=== PATIENT | female | born 1960 | race Caucasian/White ===

== ENCOUNTER 2022-09-21 17:05 | Emergency (ER) | payer MEDICAID ==
[~2022-09-21] VITALS: Ht 170.2 cm; Wt 63.4 kg
[~2022-09-21 17:05] MED LIST: CLON0.5T PO; LISI20TA28 PO; QUET200T30 PO
[2022-09-21 17:57] LABS: Basophils # (auto) 0.2 10 ^3/uL (0-0.2); Basophils % (auto) 2.9 % (0.0-2.0); Eosinophils # (auto) 0 10 ^3/uL (0-0.8); Eosinophils % (auto) 0.4 % (0.0-7.0); Hematocrit 45.3 % (36.0-46.0); Hemoglobin 15.7 g/dL (12.2-16.2); Lymphocytes # (auto) 1.5 10 ^3/uL (0.4-5.4); Lymphocytes % (auto) 19.1 % (10.0-50.0); Mean Corpuscular Hgb Conc. 34.8 g/dL (32.0-36.0); Mean Corpuscular Volume 86.3 fL (80.0-100.0); Monocytes # (auto) 0.4 10 ^3/uL (0-1.3); Monocytes % (auto) 5.1 % (0.0-12.0); Neutrophils # (auto) 5.7 10 ^3/uL (1.6-8.6); Neutrophils % (auto) 72.5 % (37.0-80.0); Nucleated Red Blood Cells % 0.1 %; Red Blood Cells 5.24 10^6/uL (4.0-5.20); Red Cell Distribution Width 13.1 % (11.8-14.3); White Blood Cell 7.9 10^3/uL (4.4-10.8)
[2022-09-21 18:24] LABS: Albumin 4.1 g/dL (3.4-5.0); BUN/Creatinine Ratio 11.1; Bilirubin, Total 0.5 mg/dL (0.2-1.0); Calcium 9.2 mg/dL (8.5-10.1); Potassium 3.7 mmol/L (3.5-5.1); Total Protein 7.5 g/dL (6.4-8.2)
[2022-09-21 20:33] VITALS: BP 161/93
[2022-09-21] MEDS ORDERED: PANT40TA2 PO (20:36)
== END 2022-09-21 20:36 | disposition home or self-care (01) ==
LOC: ER 17:12
DX: K42.9 Umbilical hernia without obstruction or gangrene (principal); D25.9 Leiomyoma of uterus, unspecified; K29.70 Gastritis, unspecified, without bleeding; I10 Essential (primary) hypertension; F17.210 Nicotine dependence, cigarettes, uncomplicated; Z79.899 Other long term (current) drug therapy; Z88.8 Allergy status to other drugs, medicaments and biological substances
CPT/HCPCS: 36415; 71045; 74176; 80053; 84484; 85025; 99285; J7030

== ENCOUNTER 2025-06-24 16:09 | Emergency (ER) | payer OTHER ==
[~2025-06-24] VITALS: Ht 167.6 cm; Wt 60.6 kg
[~2025-06-24 16:09] MED LIST changes: +CLON-1003 PO; -CLON0.5T PO; -LISI20TA28 PO; +LISI20TA56 PO; +PANT40TA2 PO
--- NOTE | 2025-06-24 17:10 | DVH ---
Indication: abdominal pain constipation Technique: CT axial images of the abdomen and pelvis are obtained without contrast. Coronal and sagit pamela reformats were obtained. Radiation Dose Information: CTDI volume is 8.57 mGy. Dose-length product is 448.64 mGy*cm Comparison: CT ABD PELVIS WO CONTRAST on DOS: 09/21/22 FINDINGS: There is limited interpretation of the abdomen and pelvis without administration of intravenous contr ast. Lung bases demonstrate emphysematous changes. No pleural effusion. Small pericardial effusion. Left adrenal nodule with Hounsfield units of 9 measuring 3 cm. There is some calcification within thi s nodule Spleen, pancreas, liver unremarkable in shape no CT evidence for cholelithiasis. There is no hydronephrosis / nephrolithiasis. Stomach partially distended. Small bowel loops are demonstrating fecal like contents. Moderate to lar ge volume stool in the colon. Normal appendix. Abdominal aortic atherosclerotic disease. Bladder is partially distended. Calcified uterine leiomyo mas. No free pelvic fluid. No inguinal lymphadenopathy. [id number] bilateral sacroiliac degenerative joint disease. Gfce-xe-ptjetmhz thoracolumbar dege nerative disc disease. IMPRESSION: Limited evaluation without contrast. Moderate to large volume stool within the colon. Fecal like contents within the small bowel which can be seen with ileus, hypomotility, bowel obstruct ion. Left adrenal nodule with Hounsfield units of 9 measuring 3 cm. Small amount of calcification within this nodule. This most likely represents an adenoma however given the internal calcification recommen d continued follow-up to exclude any type of aggressive process. Overall this appears similar to exam ination from 09/11/2022. Pulmonary emphysematous changes. Atherosclerotic, coronary artery calcification disease. Other findings as described.
[2025-06-24 17:30] LABS: Hematocrit 42.8 % (36.0-46.0); Hemoglobin 14.8 g/dL (12.2-16.2); Mean Corpuscular Hemoglobin 30.0 pg (28.0-32.0); Mean Corpuscular Volume 86.9 fL (80.0-100.0); Nucleated Red Blood Cells % 0.1 %
[2025-06-24 17:44] LABS: Alkaline Phosphatase 58 U/L (46-116); Anion Gap 9 (5-15); BUN/Creatinine Ratio 5.3 (10.0-20.0); Calcium 10.2 mg/dL (8.7-10.4); Carbon Dioxide 28 mmol/L (20-31); Chloride 102 mmol/L (98-107); Potassium 4.2 mmol/L (3.5-5.1); Sodium 139 mmol/L (136-145); Total Protein 7.5 g/dL (5.7-8.2)
[2025-06-24 17:45] LABS: Bilirubin, Total 0.6 mg/dL (0.2-1.0)
[2025-06-24 17:50] LABS: Alanine Aminotransferase 47 U/L (7-40); Albumin 4.9 g/dL (3.2-4.8); Blood Urea Nitrogen 5 mg/dL (9-23); Glucose 128 mg/dL (74-106)
[2025-06-24 18:19] LABS: Urine Protein, UAD Negative (Negative)
[2025-06-24] MEDS ORDERED: MAGNESIUM CITRATE SOLUTION 300 ML BTL PO ONE (19:00)
[2025-06-24] MEDS ORDERED: FLEET ENEMA(ADULT) 135 ML PR ONE (19:00)
[2025-06-24] MEDS ORDERED: DICYCLOMINE HCL (10MG/ML) 2 ML AMPULE IM ONE (19:00)
[2025-06-24] MEDS ORDERED: ONDANSETRON ODT 4 MG TAB PO ONE (19:00)
--- NOTE | 2025-06-24 19:12 | ED.PDOC ---
GI ASSESSMENT HPI Comments 65 y.o female with PMHx of hypertension, DM and HLD, presents to the ED for a chief complaint of abdominal pain associated with nausea and constipation. Patient reports pain has been ongoing for a couple months, usually generalized but today presents with RUQ region. Patient states constipation presented 3 weeks ago, in which that was her last regular BM but states having very small pellet like stool output daily, including today. Patient has been taking liquid medication to regulate her BM's but d/c use 2 weeks ago as it made her bloated and did not relieve constipation. Additionally, patient has been seen multiple times by PCP and had abdominal CT 2 weeks ago. Patient states she was told she was backed up with stool. She was prescribed a medication for pain however researching it, she discovered it causes gas, so did not take it. She denies any vomiting, fever, chills. Chief Complaint: Abdominal Pain Time Seen by MD: 18:50 Reviewed Notes: Nurses Notes, Medications, Allergies Allergies: Coded Allergies: Metformin (Verified Allergy, Mild, RASH, , 12/17/19) Home Meds Active Scripts Ondansetron Odt 4MG Tab (ZOFRAN PO) 4 Mg Tb, 4 MG PO TID PRN, #20 TAB prn nausea ODT TAB-DISSOLVE IN MOUTH, THEN SWALLOW Prov:GRACE BARON MD 06/24/25 Sodium Phosphates (FLEET ENEMA SIX PACK) Enema Cristy, 1 BOTTLE RE DAILY PRN, #1 PACK prn constipation Prov:GRACE BARON MD 06/24/25 Lactulose (Lactulose) 10 Gm/15 Ml Veronica, 10 GM PO DAILY, #450 ML Prov:GRACE BARON MD 06/24/25 Pantoprazole Sodium Sesquihydr (Protonix) 40 Mg Tab, 40 MG PO DAILY PRN for 10 Days, #10 TAB Prov:VICK SHABAZZ MD 09/21/22 Reported Medications Lisinopril (Lisinopril) 20 Mg Tab, 20 MG PO DAILY for 30 Days, MG 12/16/19 Quetiapine Fumerate (Seroquel) 200 Mg Tab, 200 MG PO TID, TAB 09/16/13 Clonazepam (Klonopin) 0.5 Mg Tab, 0.5 MG PO PRN, TAB 09/16/13 Information Source: Patient Mode of Arrival: Ambulatory Timing: Months Duration: Since onset Quality: Sharp Vomitus: None Stool: Empty Severity: Moderate Recent: None Recent Hx of: None Pain Location: RUQ Modifying Factors: Nothing Associated sign and symptoms: Constipation, Abdominal Pain Past Medical History PAST MEDICAL HISTORY: DM, High Lipids, HTN Surgical History: Denies all surgeries Family History Family History: Family hx of HTN Social History Smoker: Cigarettes, Less Than 1 Pack/Day Alcohol: Occasionally Drugs: Denies Drug Use Lives In: Home Constitutional: denies: chills, diaphoresis, fatigue, fever, malaise, sweats, weakness, others EENTM: denies: blurred vision, double vision, ear bleeding, ear discharge, ear drainage, ear pain, ear ringing, eye pain, eye redness, hearing loss, mouth pain, mouth swelling, nasal discharge, nose bleeding, nose congestion, nose pain, photophobia, tearing, throat pain, throat swelling, voice changes, others Respiratory: denies: cough, hemoptysis, orthopnea, SOB at rest, shortness of breath, SOB with excertion, stridor, wheezing, others Cardiovascular: denies: chest pain, dizzy spells, diaphoresis, Dyspnea on exertion, edema, irregular heart beat, left arm pain, lightheadedness, palpitations, PND, syncope, others Gastrointestinal: reports: abdominal pain, constipated; denies: abdomen distended, blood streaked bowels, diarrhea, dysphagia, difficulty swallowing, hematemesis, melena, nausea, poor appetite, poor fluid intake, rectal bleeding, rectal pain, vomiting, others Genitourinary: denies: abnormal vagina bleeding, burning, dyspareunia, dysuria, flank pain, frequency, hematuria, incontinence, pain, , vagina discharge, urgency, others Neurological: denies: dizziness, fainting, headache, left sided numbness, left sided weakness, numbness, paresthesia, pre-existing deficit, right sided numbness, right sided weakness, seizure, speech problems, tingling, tremors, weakness, others Musculoskeletal: denies: back pain, gout, joint pain, joint swelling, muscle pain, muscle stiffness, neck pain, others Integumetry: denies: bruises, change in color, change in hair/nails, dryness, laceration, lesions, lumps, rash, wounds, others Allergic/Immunocompromised: denies: Difficulty Healing, Frequent Infections, Hives, Itching, others Endocrine: denies: excessive hunger, excessive sweating, excessive thirst, excessive urination, flushing, intolerance to cold, intolerance to heat, unexplained weight gain, unexplained weight loss, others Psychiatric: denies: anxiety, bipolar disorder, depression, hopeless, panic disorder, schizophrenia, sleepless, suicidal, others All Other Systems: Reviewed and Negative Physical Exam General Appearance: Mild Distress HEENT: Other (Pupils and face symmetric. Moist mucous membranes.) Neck: Full Range of Motion, Normal Inspection Respiratory: Lungs Clear, No Accessory Muscle Use, No Respiratory Distress, Normal Breath Sounds Cardiovascular: No Edema, No JVD, Regular Rate/Rhythm Breast Exam: Deferred Gastrointestinal: Diffuse, Distended, Tenderness Genitalia: Deferred Pelvic: Deferred Rectal: Deferred Extremities: Normal inspection, Normal range of motion, Non-tender, No pedal edema Neurologic: Alert (Oriented x4), Normal Affect, Normal Mood, Other (Ambulatory) Cerebellar Function: NOT DONE Reflexes: NOT DONE Skin: Dry, Normal Color, Warm Lymphatic: NOT DONE Was a procedure done? Was a procedure done?: No GI differential Dx Differential Diagnosis: Bowel Obstruction, Constipation, Gastroenteritis, Inflammatory BD, Ischemic Bowel, UTI, Dehydration, Electrolyte Imbalance, Bacterial, Viral, Impaction, Renal Failure, Other (Ileus) X-Ray, Labs, Meds, VS Vital Signs Date Time Temp Pulse Resp B/P (MAP) Pulse Ox O2 Delivery O2 Flow Rate FiO2 06/24/25 23:11 97.8 67 18 119/118 (118) 97 97.8 06/24/25 23:11 67 18 97 Room Air 06/24/25 23:03 191/118 06/24/25 16:25 72 06/24/25 16:11 97.6 83 18 190/115 97 97.6 Lab Test 06/24/25 17:01 06/24/25 16:57 Range/Units Urine Color Colorless Yellow Urine Clarity Clear Clear Urine pH 7.0 5.0-9.0 Urine Specific Dora 1.005 1.001-1.035 Urine Protein Negative Negative Urine Ketones Negative Negative Urine Blood Negative Negative /uL Urine Nitrite Negative Negative Urine Bilirubin Negative Negative Urine Urobilinogen Normal Negative mg/dL Urine Leukocyte Esterase Trace Negative /uL Urine RBC <1 0 - 4 /hpf Urine Microscopic WBC 3 0-5 /HPF Urine Squamous Epithelial Cells Few <5 /hpf Urine Bacteria Few H None Seen /hpf Urine Glucose Normal Normal mg/dL White Blood Count 7.0 4.4-10.8 10^3/uL Red Blood Count 4.93 4.0-5.20 10^6/uL Hemoglobin 14.8 12.2-16.2 g/dL Hematocrit 42.8 36.0-46.0 % Mean Corpuscular Volume 86.9 80.0-100.0 fL Mean Corpuscular Hemoglobin 30.0 28.0-32.0 pg Mean Corpuscular Hemoglobin Concent 34.6 32.0-36.0 g/dL Red Cell Distribution Width 13.4 11.8-14.3 % Platelet Count 215 140-450 10^3/uL Mean Platelet Volume 8.3 6.9-10.8 fL Neutrophils (%) (Auto) 65.9 37.0-80.0 % Lymphocytes (%) (Auto) 25.4 10.0-50.0 % Monocytes (%) (Auto) 7.1 0.0-12.0 % Eosinophils (%) (Auto) 1.1 0.0-7.0 % Basophils (%) (Auto) 0.5 0.0-2.0 % Neutrophils # (Auto) 4.6 1.6-8.6 10 ^3/uL Lymphocytes # (Auto) 1.8 0.4-5.4 10 ^3/uL Monocytes # (Auto) 0.5 0-1.3 10 ^3/uL Eosinophils # (Auto) 0.1 0-0.8 10 ^3/uL Basophils # (Auto) 0 0-0.2 10 ^3/uL Nucleated Red Blood Cells 0.1 % Sodium Level 139 136-145 mmol/L Potassium Level 4.2 3.5-5.1 mmol/L Chloride Level 102 98-107 mmol/L Carbon Dioxide Level 28 20-31 mmol/L Anion Gap 9 5-15 Blood Urea Nitrogen 5 L 9-23 mg/dL Creatinine 0.94 0.550-1.02 mg/dL Glomerular Filtration Rate Calc 67 >90 mL/min BUN/Creatinine Ratio 5.3 L 10.0-20.0 Serum Glucose 128 H 74-106 mg/dL Lactic Acid Level 1.0 0.4-2.0 mmol/L Calcium Level 10.2 8.7-10.4 mg/dL Total Bilirubin 0.6 0.2-1.0 mg/dL Aspartate Amino Transferase (AST) 37 13-40 U/L Alanine Aminotransferase (ALT) 47 H 7-40 U/L Alkaline Phosphatase 58 46-116 U/L Total Protein 7.5 5.7-8.2 g/dL Albumin 4.9 H 3.2-4.8 g/dL Current Medications Medications (Trade) Dose Ordered Sig/Mariajose Route Start Time Stop Time Status Last Admin Hydralazine HCl (Apresoline Injection) 10 mg ONCE ONCE IV 06/24/25 21:30 06/24/25 21:32 DC 06/24/25 23:03 Ketorolac Tromethamine (Toradol Injection) 15 mg ONCE ONCE IV 06/24/25 23:15 06/24/25 23:16 DC 06/24/25 23:31 PROCEDURE(s): ABPL - CT AB PEL WO CON-NO ORAL OR IV REASON: abdominal pain constipation ORDER NUMBER(s): [id number], ACCESSION NUMBER(s): [id number] Indication: abdominal pain constipation Technique: CT axial images of the abdomen and pelvis are obtained without con trast. Coronal and sagittal reformats were obtained. Radiation Dose Information: CTDI volume is 8.57 mGy. Dose-length product is 448.64 mGy*cm Comparison: CT ABD PELVIS WO CONTRAST on DOS: 09/21/22 FINDINGS: There is limited interpretation of the abdomen and pelvis without administration of intravenous contrast. Lung bases demonstrate emphysematous changes. No pleural effusion. Small pericardial effusion. Left adrenal nodule with Hounsfield units of 9 measuring 3 cm. There is some calcification within this nodule Spleen, pancreas, liver unremarkable in shape no CT evidence for cholelithiasis. There is no hydronephrosis / nephrolithiasis. Stomach partially distended. Small bowel loops are demonstrating fecal like contents. Moderate to large volume stool in the colon. Normal appendix. Abdominal aortic atherosclerotic disease. Bladder is partially distended. Calcified uterine leiomyomas. No free pelvic fluid. No inguinal lymphadenopathy. Osiz-oe-daeeztuo bilateral sacroiliac degenerative joint disease. Ouqh-bw-mplipjyg thoracolumbar degenerative disc disease. IMPRESSION: Limited evaluation without contrast. Moderate to large volume stool within the colon. Fecal like contents within the small bowel which can be seen with ileus, hypomotility, bowel obstruction. Left adrenal nodule with Hounsfield units of 9 measuring 3 cm. Small amount of calcification within this nodule. This most likely represents an adenoma however given the internal calcification recommend continued follow-up to exclude any type of aggressive process. Overall this appears similar to examination from 09/11/2022. Pulmonary emphysematous changes. Atherosclerotic, coronary artery calcification disease. Other findings as described. X-Ray, Labs, Meds, VS Comment 65 y.o female with PMHx of hypertension, DM and HLD, presents to the ED for a chief complaint of abdominal pain associated with nausea and constipation Vitals remarkable for BP 190/115 Exam remarkable for abdominal distention and tenderness Rhythm strip independently interpreted by me: Sinus rhythm, rate 83, no ectopy. CT abdomen and pelvis IMPRESSION: Limited evaluation without contrast. Moderate to large volume stool within the colon. Fecal like contents within the small bowel which can be seen with ileus, hypomotility, bowel obstruction. Left adrenal nodule with Hounsfield units of 9 measuring 3 cm. Small amount of calcification within this nodule. This most likely represents an adenoma however given the internal calcification recommend continued follow-up to exclude any type of aggressive process. Overall this appears similar to examination from 09/11/2022. Pulmonary emphysematous changes. Atherosclerotic, coronary artery calcification disease. Other findings as described. CBC, CMP, lactate and UA unremarkable Following was ordered for the patient in the ED: Bentyl 20 mg IM, Zofran ODT 8 mg p.o., lactulose 60 mL p.o., bisacodyl 10 mg NM, hydralazine 10 mg IV, Toradol 15 mg IV Plan was for hospital admission for serial abdominal exams, pain control and bowel evacuation. Case was discussed with Dr. Gupta, who declined to admit the patient. She requested patient be discharged with a prescription for p.o. lactulose, and she will arrange for close GI follow-up. On re-evaluation, patient was not vomiting. She stated pain had not improved, so IV Toradol was ordered. Patient was to attempt to discharge the patient when pain is controlled. Rx lactulose, Fleet enemas I was advised by the patient's nurse that the patient was refusing to be discharged. She stated she lives in a back house with no immediate access to a restroom. She was also refusing the bisacodyl and lactulose here, stating she will not take them until she has a bed with close access to a restroom. There are no available beds in the ED at this time, and the patient is currently being treated in a chair. I re-contacted Dr. Gupta and advised her of the situation. She again refused to admit the patient. I suggested we admit the patient to our hospitalist. Dr. Gupta stated she will place a discharge order. Time of 1ST Reevaluation: 19:06 Reevaluation 1ST: Unchanged Patient Education/Counseling: Diagnosis, Treatment, Prognosis Family Education/Counseling: No Family Present SEPSIS Sepsis Screen Date sepsis recognized/suspect: Jun 24, 2025 Time Sepsis recognized/suspect: 1613 Recent Procedure: No On Antibiotic Therapy: No Respiratory Rate >20: No Heart Rate >90: No Temp<36 C (96.8 F) or >38.3 C: No SBP <90 or MAP <65 mmHG: No New Acute Mental Status Change: No Is the patient on CPAP, BIPAP,: No Physician Orders Electrocardigram (06/24/25 16:19) Ct Ab Pel Wo Con-No Oral Or Iv (06/24/25 16:21) Blood Culture (06/24/25 16:21) Discharge (06/24/25 23:26) Vital Signs Date Time Temp Pulse Resp B/P (MAP) Pulse Ox O2 Delivery O2 Flow Rate FiO2 06/24/25 23:11 97.8 67 18 119/118 (118) 97 97.8 06/24/25 23:11 67 18 97 Room Air 06/24/25 23:03 191/118 06/24/25 16:25 72 06/24/25 16:11 97.6 83 18 190/115 97 97.6 Laboratory Tests Test 06/24/25 16:57 Lactic Acid Level 1.0 mmol/L (0.4-2.0) White Blood Count 7.0 10^3/uL (4.4-10.8) Medications Medications Dose Ordered Sig/Mariajose Route Start Time Stop Time Status Last Admin Dose Admin Hydralazine HCl 10 mg ONCE ONCE IV 06/24/25 21:30 06/24/25 21:32 DC 06/24/25 23:03 Ketorolac Tromethamine 15 mg ONCE ONCE IV 06/24/25 23:15 06/24/25 23:16 DC 06/24/25 23:31 Departure 1 Departure Time of Disposition: 22:46 Impression: Primary Impression: Constipation Additional Impression: Abdominal pain Disposition: HOME / SELF CARE / HOMELESS Condition: Fair Additional Instructions: Your lab tests were unremarkable. Your CT scan showed large amount of stool in your intestines. I have prescribed medication for constipation. You will be contacted to arrange for follow-up with a food beverage manager. Return to ER for persistent or worsening symptoms. e-Prescriptions Ondansetron Odt 4MG Tab (ZOFRAN PO) 4 Mg Tb 4 MG PO TID PRN, #20 TAB prn nausea ODT TAB-DISSOLVE IN MOUTH, THEN SWALLOW Prov: GRACE BARON MD 06/24/25 Sodium Phosphates (FLEET ENEMA SIX PACK) Enema Cristy 1 BOTTLE RE DAILY PRN, #1 PACK prn constipation Prov: GRACE BARON MD 06/24/25 Lactulose (Lactulose) 10 Gm/15 Ml Veronica 10 GM PO DAILY, #450 ML Prov: GRACE BARON MD 06/24/25 Discharged With: Self Critical Care Note Critical Care Time?: No Stability Stability form required: No I personally scribed for GRACE BARON MD ([email or web address]) on 06/24/25 at 19:12. Electronically submitted by Tanisha Escalante ([facility]). GRACE BARON MD Jun 24, 2025 19:12
[2025-06-24] MEDS ORDERED: BISACODYL 10 MG RECT SUPP PR ONE (21:15)
[2025-06-24] MEDS ORDERED: LACTULOSE 20Gm/30ML SOLN PO ONE (21:15)
[2025-06-24] MEDS ORDERED: ZOFR4T PO (22:50)
[2025-06-24] MEDS ORDERED: SODIENE35 RE (22:50)
[2025-06-24] MEDS ORDERED: LACT10SO3 PO (22:50)
[2025-06-24] MEDS: hydrALAZINE HCL 20 MG/ML VL IV ONE (23:03)
[2025-06-24 23:11] VITALS: BP 119/118; PULSE 67; RESP 18; TEMP 97.8; O2SAT 97
[2025-06-24] MEDS: KETOROLAC TROMETH 30 MG/ML 1ML VIAL IV ONE (23:31)
--- NOTE | 2025-06-25 23:25 | DVHDS2 ---
Physician Discharge Progress N Final Diagnosis: Constipation Operations or Procedures: Operations or Procedures none Other Interventions Other Interventions lab results, CT abdomen, EKG Consultations: Consultations none Commentary: Commentary 65 y.o. female arrived to the ER c/o constipation. CT showed moderate to large volume stool within colon. Patient stated that she has been having pellet-like stool for some time. SHe stated that she took some medications for constipation without results. She was also prescribed some liquid medication for constipation but stop taking it because it cause bloating. Patient refused to be discharged, stating that she "has no bathroom in the house, that is close to her". In the E R patient refused to take Lactulose and Bisacodyl, stating the she needs to be "close to a bathroom". In the ER patient remained stable. Her lab results were unremarkable. Patient was advise to adhere to her treatment for constipation and to take the prescribed medications. [facility] will schedule GI appointment as well. Condition on Discharge: Stable Disposition: Home SNF Discharge Will this Physician continue t: No Discharge Instructions: Diet: Regular Activity: No Restrictions, As Tolerated Follow Up/Referral: GI in 3 days Medications: Lactulose 30 ml PO daily, hold for more than 2 BM/day Follow Up Care: Discharge Statement: "Patient was advised to return to the ER or call 911 if any headaches, dizziness, shortness of breath, chest pain, abdominal pain, bleeding, fevers, or worsening of medical condition. Patient was counseled about treatment plan, medications, possible side effects, patientverbalized understanding. All questions were answered to the best of my ability. This discharge took greater then 30 minutes in planning, reviewing documentation, counseling the patient, and discussing with other team members." JOSÉ ROBERTS MD Jun 25, 2025 23:25
--- NOTE | 2025-06-27 08:22 | ECG ---
[facility] Test Date: 2025-06-24 Test Time: 16:25:40 Pat Name: ROHINI MORALES Department: ED Room: Gender: F Seamer: dayanna : 1960 Requested By: VICK SHABAZZ Order Number: [id number] Reading MD: Measurements Intervals [place] Rate: 72 P: 56 [place]: 169 QRS: -19 QRSD: 84 T: 48 QT: 384 QTc: 421 Interpretive Statements Sinus rhythm Borderline left axis deviation Low voltage, precordial leads Baseline wander in lead(s) I,II,aVR Please click the below link to view image of tracing.
== END 2025-06-24 23:29 | disposition home or self-care (01) ==
LOC: ER 16:09
DX: K59.00 Constipation, unspecified (principal); R10.11 Right upper quadrant pain; E11.9 Type 2 diabetes mellitus without complications; I10 Essential (primary) hypertension; F17.210 Nicotine dependence, cigarettes, uncomplicated; Z79.899 Other long term (current) drug therapy
CPT/HCPCS: 36415; 74176; 80053; 81001; 83605; 85025; 87040; 96374; 96375; 99285; J0360; J1885; 93005